=== PATIENT | female | born 1935 | race Caucasian/White ===

== ENCOUNTER 2018-03-20 09:09 | Outpatient (CLI) | payer OTHER ==
[~2018-03-20 09:09] MED LIST: ASA81 MG; NEURONTIN300 MG; SIMVASTATIN10 MG; SYNTHROID75 MCG; TOPROL XL50 MG
== END 2018-03-20 09:19 | disposition home or self-care (01) ==
LOC: TOM 09:09
DX: F01.50 Vascular dementia, unspecified severity, without behavioral disturbance, psychotic disturbance, mood disturbance, and anxiety (principal); G32.81 Cerebellar ataxia in diseases classified elsewhere

== ENCOUNTER 2018-05-30 07:18 | Outpatient (CLI) | payer OTHER | END 2018-05-30 07:26 | disposition home or self-care (01) | LOC: LAB 07:18 | DX: R10.84 Generalized abdominal pain (principal); E03.8 Other specified hypothyroidism; E78.2 Mixed hyperlipidemia; K85.90 Acute pancreatitis without necrosis or infection, unspecified ==

== ENCOUNTER 2018-08-11 09:55 | Inpatient (IN) | payer OTHER ==
[~2018-08-11] VITALS: Ht 157.5 cm; Wt 57.2 kg
== END 2018-08-23 10:50 | disposition home or self-care (01) | DRG 389 ==
LOC: ER 09:55 → MEDI 19:35 → MEDJ 08-14 15:30
PROVIDERS: ADMIT Internal Medicine Cardiovascular Disease
PROC: BW21ZZZ Computerized Tomography (CT Scan) of Abdomen and Pelvis (ICD-10-PCS; principal; 2018-08-11)
PROC: 02HV33Z Insertion of Infusion Device into Superior Vena Cava, Percutaneous Approach (ICD-10-PCS; 2018-08-12)
PROC: B54MZZZ Ultrasonography of Right Upper Extremity Veins (ICD-10-PCS; 2018-08-18)
DX: K56.690 Other partial intestinal obstruction (principal); K57.32 Diverticulitis of large intestine without perforation or abscess without bleeding; E11.65 Type 2 diabetes mellitus with hyperglycemia; D72.828 Other elevated white blood cell count; I10 Essential (primary) hypertension; E03.8 Other specified hypothyroidism; J44.9 Chronic obstructive pulmonary disease, unspecified; E86.0 Dehydration; E78.00 Pure hypercholesterolemia, unspecified; K59.09 Other constipation; Z90.49 Acquired absence of other specified parts of digestive tract; Z88.0 Allergy status to penicillin

== ENCOUNTER 2018-11-29 10:14 | Emergency (ER) | payer OTHER ==
[~2018-11-29] VITALS: Ht 160 cm; Wt 54.4 kg
== END 2018-11-29 19:11 | disposition home or self-care (01) ==
LOC: ER 10:14
DX: K52.89 Other specified noninfective gastroenteritis and colitis (principal); R10.32 Left lower quadrant pain